=== PATIENT | female | born 1975 | race Caucasian/White ===

== ENCOUNTER 2017-06-19 17:45 | Inpatient (IN) | payer BC ==
[2017-06-19] VITALS (8 sets, daily range): BP systolic 104–123; BP diastolic 68–84; PULSE 98–114; RESP 16–18; TEMP 99.2; O2SAT 93–100
[~2017-06-19] VITALS: Ht 162.6 cm; Wt 86.3 kg
[2017-06-19] MEDS ORDERED: PRIS50TA PO (18:18)
[2017-06-19] MEDS ORDERED: BACT400T PO (18:18)
--- NOTE | 2017-06-19 18:30 | RADRPT ---
EXAM DATE/TIME: 06/19/2017 18:19 [facility] COMPARISON: No previous studies available for comparison. INDICATIONS : Shortness of breath, cough for 3 days MEDICAL HISTORY : None. SURGICAL HISTORY : None. ENCOUNTER: Initial ACUITY: 3 days PAIN SCORE: 0/10 LOCATION: Bilateral chest FINDINGS: PA and lateral views of the chest demonstrate the lungs to be symmetrically aerated without evidence of mass, infiltrate or effusion. Slight elevation right hemidiaphragm. The cardiomediastinal contours are unremarkable. Osseous structures are intact. CONCLUSION: Slight elevation right hemidiaphragm. No acute disease. Manuel Sanchez MD on June 19, 2017 at 18:28 Board Certified Radiologist. This report was verified electronically.
[2017-06-19 19:22] LABS: AUTOMATED NEUTROPHIL # 7.9 TH/MM3 (1.8-7.7); BASOPHIL # 0.4 TH/MM3 (0-0.2); BASOPHIL % 3.3 % (0.0-2.0); EOSINOPHIL # 0.2 TH/MM3 (0-0.4); EOSINOPHIL % 2.1 % (0.0-4.0); HEMATOCRIT 42.7 % (35.0-46.0); LYMPH % 14.8 % (9.0-44.0); LYMPHOCYTE # 1.7 TH/MM3 (1.0-4.8); MEAN CORPUSCULAR HEMOGLOBIN 28.8 PG (27.0-34.0); MEAN CORPUSCULAR HGB CONC 33.5 % (32.0-36.0); MONO % 9.2 % (0.0-8.0); NEUT % 70.6 % (16.0-70.0); PLATELET COUNT 302 TH/MM3 (150-450); RED BLOOD COUNT 4.97 MIL/MM3 (4.00-5.30); RED CELL DISTRIBUTION WIDTH 12.4 % (11.6-17.2); WHITE BLOOD COUNT 11.3 TH/MM3 (4.0-11.0)
[2017-06-19 19:30] LABS: CHLORIDE 101 MEQ/L (98-107); POTASSIUM 3.5 MEQ/L (3.5-5.1); SODIUM (NA) 136 MEQ/L (136-145)
[2017-06-19 19:33] LABS: HEMO FLAGS DIFF FINAL
[2017-06-19 19:34] LABS: ANION GAP 9 MEQ/L (5-15); BICARBONATE 26.1 MEQ/L (21.0-32.0); BLOOD UREA NITROGEN 7 MG/DL (7-18)
[2017-06-19 19:37] LABS: ALT (GPT) 537 U/L (10-53); AST (GOT) 225 U/L (15-37); GLOMERULAR FILTRATION RATE 64 ML/MIN (>89)
[2017-06-19 19:39] LABS: TOTAL BILIRUBIN ADULT 1.1 MG/DL (0.2-1.0)
[2017-06-19 19:40] LABS: ALKALINE PHOSPHATASE 411 U/L (45-117); APTT (PATIENT) 30.1 SEC (24.3-30.1); INTERNATIONAL NORMALIZED RATIO 0.9 RATIO; PROTHROMBIN TIME - PATIENT 10.4 SEC (9.8-11.6)
[2017-06-19 19:41] LABS: CREATINE KINASE 84 U/L (26-192)
[2017-06-19] MEDS ORDERED: methylPREDNISolone SOD SUCC 125 MG/2 ML VIAL IVP ONE (19:45)
[2017-06-19] MEDS ORDERED: KETOROLAC TROMETHAMINE 30 MG/ML (IVP) VIAL IV PUSH ONE (19:45)
[2017-06-19] MEDS: RESP: ALBUTEROL 2.5 MG/IPRATROPIUM 0.5 MG NEB (SCH) INH ×2 (20:00→20:02)
[2017-06-19 20:40] LABS: BLOOD, URINE TRACE (NEG); GLUCOSE,URINE NEG (NEG); KETONE, URINE NEG (NEG); NITRITE,URINE NEG (NEG); PH, URINE 5.5 (5.0-8.5)
[2017-06-19 20:46] LABS: URINE COLOR YELLOW (YELLW/STRAW); WBC, URINE 0-2 /hpf (0-5)
[2017-06-19 20:47] LABS: BACTERIA, URINE FEW /hpf; COMMENT (UR) CULT NOT INDICATED; CULTURE IF INDICATED CULT NOT INDICATED; RBC, URINE 0-3 /hpf (0-3); SQUAMOUS EPITHELIAL CELL URINE 0-5 /hpf (0-5)
[2017-06-19] MEDS ORDERED: IOHEXOL 350 MG/ML 10 ML VIAL (for RAD DIAG) IV ONE (21:04)
--- NOTE | 2017-06-19 21:18 | RADRPT ---
EXAM DATE/TIME: 06/19/2017 20:36 [facility] COMPARISON: No previous studies available for comparison. INDICATIONS : Shortness of breath with chest pain. Elevated d-dimer. IV CONTRAST: 100 cc Omnipaque 350 (iohexol) IV ; Cumulative dose for multiple exams. RADIATION DOSE: 22.39 CTDIvol (mGy) MEDICAL HISTORY : None SURGICAL HISTORY : Hysterectomy. ENCOUNTER: Initial ACUITY: 1 day PAIN SCALE: 9/10 LOCATION: Bilateral chest TECHNIQUE: Volumetric scanning of the chest was performed using a pulmonary embolism protocol MIP images were re constructed. Using automated exposure control and adjustment of the mA and/or kV according to patien t size, radiation dose was kept as low as reasonably achievable to obtain optimal diagnostic quality images. DICOM format image data is available electronically for review and comparison. Follow-up recommendations for incidentally detected pulmonary nodules are based at a minimum on nodul e size and patient risk factors according to Fleischner Society Guidelines. FINDINGS: PULMONARY ARTERIES: No filling defects are seen in the pulmonary arteries through the segmental level. LUNGS: There is no consolidation or pneumothorax . No concerning pulmonary nodule is visualized. Bibasilar patchy densities. PLEURAE: There is no pleural thickening or pleural effusion. MEDIASTINUM: There is good visualization of the great vessels of the middle mediastinum. No evidence of mediastin al or hilar adenopathy/mass. MUSCULOSKELETAL: Within normal limits for patient age. MISCELLANEOUS: The visualized upper abdominal organs demonstrate no acute abnormality. CONCLUSION: 1. No evidence for pulmonary embolism. 2. Bibasilar patchy densities. Manuel Sanchez MD on June 19, 2017 at 21:15 Board Certified Radiologist. This report was verified electronically.
--- NOTE | 2017-06-19 21:20 | RADRPT ---
EXAM DATE/TIME: 06/19/2017 20:36 [facility] COMPARISON: No previous studies available for comparison. INDICATIONS : Elevated liver laboratory results. IV CONTRAST: 100 cc Omnipaque 350 (iohexol) IV ; Cumulative dose for multiple exams. ORAL CONTRAST: No oral contrast ingested. RADIATION DOSE: 20.22 CTDIvol (mGy) MEDICAL HISTORY : None SURGICAL HISTORY : Hysterectomy. ENCOUNTER: Initial ACUITY: 1 day PAIN SCALE: 0/10 LOCATION: abdomen TECHNIQUE: Volumetric scanning of the abdomen and pelvis was performed. Using automated exposure control and ad justment of the mA and/or kV according to patient size, radiation dose was kept as low as reasonably achievable to obtain optimal diagnostic quality images. DICOM format image data is available electro nically for review and comparison. FINDINGS: LOWER LUNGS: The visualized lower lungs are clear. LIVER: Homogeneous density without lesion. There is no dilation of the biliary tree. No calcified gallston es. SPLEEN: Normal size without lesion. PANCREAS: Within normal limits. KIDNEYS: Normal in size and shape. There is no mass, stone or hydronephrosis. Left renal low-density. ADRENAL GLANDS: Within normal limits. VASCULAR: There is no aortic aneurysm. BOWEL/MESENTERY: The stomach, small bowel, and colon demonstrate no acute abnormality. There is no free intraperitone al air or fluid. ABDOMINAL WALL: Within normal limits. RETROPERITONEUM: There is no lymphadenopathy. BLADDER: No wall thickening or mass. REPRODUCTIVE: Status post hysterectomy. INGUINAL: There is no lymphadenopathy or hernia. MUSCULOSKELETAL: Within normal limits for patient age. CONCLUSION: 1. No acute inflammatory process. 2. Liver is unremarkable. 3. Left renal low-density likely cysts. Manuel Sanchez MD on June 19, 2017 at 21:17 Board Certified Radiologist. This report was verified electronically.
[2017-06-19] MEDS ORDERED: LEVOFLOXACIN 750 MG PREMIX INJ 150 ML IV ONE (22:00)
[2017-06-19] MEDS ORDERED: cefTRIAXone INJ 1,000 MG in SODIUM CHLORIDE 0.9% INJ 100 ML IV ONE (22:00)
--- NOTE | 2017-06-19 22:23 | PD ---
HPI Chief Complaint: Chest Pain Time Seen by Provider: 18:07 Travel History International Travel<30 days: No Contact w/Intl Traveler<30days: No Traveled to known affect area: No History of Present Illness HPI Patient is a 42-year-old female who comes in complaining of chest pain with shortness of breath and back pain. She says it started about 3 days ago with cough and then she started to feel tightness in her chest and pain to her back. She says her mom had a heart attack in her 20s, and this made her nervous. She says she has been having sweats, but no documented fever that she knows of. She denies nausea or vomiting. She does say she is coughing up green phlegm. She denies recent travel, leg pain or swelling. 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) Tetanus Vaccination: < 5 Years Influenza Vaccination: Yes ?: Not Past Surgical History Hysterectomy: Yes Social History Alcohol Use: No Tobacco Use: No Substance Use: No Allergies-Medications (Allergen,Severity, Reaction): Coded Allergies: Erythromycin (Verified Allergy, Severe, Nausea/Vomiting, 06/19/17) Reported Meds & Prescriptions Reported Meds & Active Scripts Active Reported Bactrim (Sulfamethoxazole-Trimethoprim) 400-80 Mg Tab 1 Tab PO BID Pristiq 24 HR (Desvenlafaxine ER 24 HR) 50 Mg Tab 50 Mg PO DAILY Review of Systems Except as stated in HPI: all other systems reviewed are Neg Eyes: No: Blurred Vision HENT: No: Headaches, Lightheadedness Cardiovascular: Positive: Chest Pain or Discomfort Respiratory: Positive: Cough, Shortness of Breath Gastrointestinal: No: Nausea, Vomiting Genitourinary: No: Dysuria Musculoskeletal: No: Myalgias, Edema Skin: No Rash, No Change in Pigmentation Neurologic: No: Weakness, Dizziness Physical Exam Narrative GENERAL: Awake and alert, in no acute distress. SKIN: Focused skin assessment warm/dry. HEAD: Atraumatic. Normocephalic. EYES: Pupils equal and round. No scleral icterus. ENT: Mucous membranes pink and moist. NECK: Trachea midline. No JVD. CARDIOVASCULAR: Regular rate and rhythm. No murmur appreciated. RESPIRATORY: No accessory muscle use. Expirational wheezes. Breath sounds equal bilaterally. GASTROINTESTINAL: Abdomen soft, non-tender, nondistended. MUSCULOSKELETAL: No obvious deformities. No clubbing. No cyanosis. No edema. NEUROLOGICAL: Awake and alert. No obvious cranial nerve deficits. Motor grossly within normal limits. Normal speech. PSYCHIATRIC: Appropriate mood and affect; insight and judgment normal. Data Data Last Documented VS Vital Signs Date Time Temp Pulse Resp B/P Pulse Ox O2 Delivery O2 Flow Rate FiO2 06/19/17 21:15 16 06/19/17 21:00 110 106/68 93 Room Air 06/19/17 18:19 99.2 Orders Ckmb (Isoenzyme) Profile (06/19/17 18:07) Complete Blood Count With Diff (06/19/17 18:07) Comprehensive Metabolic Panel (06/19/17 18:07) D-Dimer (06/19/17 18:07) Prothrombin Time / Inr (Pt) (06/19/17 18:07) Act Partial Throm Time (Ptt) (06/19/17 18:07) Troponin I (06/19/17 18:07) Ecg Monitoring (06/19/17 18:07) Bilateral Bp Monitoring (06/19/17 18:07) Iv Access Insert/Monitor (06/19/17 18:07) Oximetry (06/19/17 18:07) Chest, Pa & Lat (06/19/17 18:07) Methylprednisolone So Succ Inj (Solumedr (06/19/17 19:45) Albuterol-Ipratropium Neb (Duoneb Neb) (06/19/17 19:45) Ketorolac Inj (Toradol Inj) (06/19/17 19:45) Ct Pulmonary Angiogram (06/19/17 20:05) Ct Abd/Pel W Iv Contrast(Rout) (06/19/17 ) Urinalysis - C+S If Indicated (06/19/17 20:22) Iohexol 350 Inj (Omnipaque 350 Inj) (06/19/17 21:04) Electrocardiogram (06/19/17 17:53) Ceftriaxone Inj (Rocephin Inj) (06/19/17 22:00) Levofloxacin 750 Mg Premix Inj (Levaquin (06/19/17 22:00) Admit Order (Ed Use Only) (06/19/17 ) Labs Laboratory Tests Test 06/19/17 06/19/17 19:15 20:10 White Blood Count 11.3 TH/MM3 Red Blood Count 4.97 MIL/MM3 Hemoglobin 14.3 GM/DL Hematocrit 42.7 % Mean Corpuscular Volume 86.0 FL Mean Corpuscular Hemoglobin 28.8 PG Mean Corpuscular Hemoglobin 33.5 % Concent Red Cell Distribution Width 12.4 % Platelet Count 302 TH/MM3 Mean Platelet Volume 7.9 FL Neutrophils (%) (Auto) 70.6 % Lymphocytes (%) (Auto) 14.8 % Monocytes (%) (Auto) 9.2 % Eosinophils (%) (Auto) 2.1 % Basophils (%) (Auto) 3.3 % Neutrophils # (Auto) 7.9 TH/MM3 Lymphocytes # (Auto) 1.7 TH/MM3 Monocytes # (Auto) 1.0 TH/MM3 Eosinophils # (Auto) 0.2 TH/MM3 Basophils # (Auto) 0.4 TH/MM3 CBC Comment DIFF FINAL Differential Comment Prothrombin Time 10.4 SEC Prothromb Time International 0.9 RATIO Ratio Activated Partial 30.1 SEC Thromboplast Time D-Dimer Quantitative (PE/DVT) 1.81 MG/L FEU Sodium Level 136 MEQ/L Potassium Level 3.5 MEQ/L Chloride Level 101 MEQ/L Carbon Dioxide Level 26.1 MEQ/L Anion Gap 9 MEQ/L Blood Urea Nitrogen 7 MG/DL Creatinine 0.97 MG/DL Estimat Glomerular Filtration 64 ML/MIN Rate Random Glucose 117 MG/DL Calcium Level 9.2 MG/DL Total Bilirubin 1.1 MG/DL Aspartate Amino Transf 225 U/L (AST/SGOT) Alanine Aminotransferase 537 U/L (ALT/SGPT) Alkaline Phosphatase 411 U/L Total Creatine Kinase 84 U/L Troponin I LESS THAN 0.02 NG/ML Total Protein 8.1 GM/DL Albumin 3.5 GM/DL Urine Color YELLOW Urine Turbidity CLEAR Urine pH 5.5 Urine Specific [place] 1.006 Urine Protein NEG mg/dL Urine Glucose (UA) NEG mg/dL Urine Ketones NEG mg/dL Urine Occult Blood TRACE Urine Nitrite NEG Urine Bilirubin NEG Urine Leukocyte Esterase NEG Urine RBC 0-3 /hpf Urine WBC 0-2 /hpf Urine Squamous Epithelial 0-5 /hpf Cells Urine Bacteria FEW /hpf Microscopic Urinalysis Comment CULT NOT INDICATED MDM Medical Decision Making Medical Screen Exam Complete: Yes Emergency Medical Condition: Yes Interpretation(s) ECG shows sinus tachycardia Differential Diagnosis pneumonia vs PE vs bronchitis Narrative Course Patient is a 42-year-old female comes in complaining of chest pain or shortness of breath. Exam shows wheezes on expiration. IV established, labs sent. Patient given 3 duo nebs as well as a dose of Solu-Medrol. Labs show no elevated d-dimer. CTA of the chest performed shows no evidence of PE, but there are bibasilar patchy opacities. Patient's oxygen saturation is 93% on room air. She is placed on nasal cannula. Given Rocephin and azithromycin. She'll be admitted for further management. Diagnosis Primary Impression: Pneumonia Qualified Code: J18.9 - Pneumonia of both lower lobes due to infectious organism Additional Impression: Hypoxia Admitting Information Admitting Physician Requests: Admit Condition: Stable Denise Avila MD Jun 19, 2017 22:23
[2017-06-19] MEDS ORDERED: SODIUM CHLORIDE 0.9% FLUSH 10 ML FLUSH IV FLUSH PRN (22:30)
[2017-06-19] MEDS ORDERED: NALOXONE HCL 0.4 MG/ML AMP IV PRN (22:30)
[2017-06-20] VITALS (13 sets, daily range): BP systolic 101–141; BP diastolic 61–94; PULSE 73–102; RESP 16–18; TEMP 97.5–98.8; O2SAT 93–99
[2017-06-20] MEDS ORDERED: LORA-392 PO (01:25)
[2017-06-20] MEDS ORDERED: LORazepam 0.5 MG TAB PO ONE (01:45)
[2017-06-20 06:27] LABS: AUTOMATED NEUTROPHIL # 6.6 TH/MM3 (1.8-7.7); BASOPHIL # 0.1 TH/MM3 (0-0.2); BASOPHIL % 1.9 % (0.0-2.0); EOSINOPHIL # 0.1 TH/MM3 (0-0.4); EOSINOPHIL % 0.7 % (0.0-4.0); HEMATOCRIT 41.2 % (35.0-46.0); HEMO FLAGS DIFF FINAL; LYMPH % 7.5 % (9.0-44.0); LYMPHOCYTE # 0.6 TH/MM3 (1.0-4.8); MEAN CELL VOLUME 85.4 FL (80.0-100.0); MEAN CORPUSCULAR HEMOGLOBIN 28.8 PG (27.0-34.0); MEAN CORPUSCULAR HGB CONC 33.8 % (32.0-36.0); MONO % 0.9 % (0.0-8.0); PLATELET COUNT 264 TH/MM3 (150-450); RED BLOOD COUNT 4.83 MIL/MM3 (4.00-5.30); RED CELL DISTRIBUTION WIDTH 12.3 % (11.6-17.2); WHITE BLOOD COUNT 7.5 TH/MM3 (4.0-11.0)
[2017-06-20 07:05] LABS: CHLORIDE 103 MEQ/L (98-107); POTASSIUM 3.9 MEQ/L (3.5-5.1); SODIUM (NA) 137 MEQ/L (136-145)
[2017-06-20 07:08] LABS: ANION GAP 11 MEQ/L (5-15); BLOOD UREA NITROGEN 7 MG/DL (7-18)
[2017-06-20 07:11] LABS: ALT (GPT) 423 U/L (10-53); AST (GOT) 118 U/L (15-37); GLOMERULAR FILTRATION RATE 77 ML/MIN (>89)
[2017-06-20 07:13] LABS: TOTAL BILIRUBIN ADULT 0.5 MG/DL (0.2-1.0)
[2017-06-20 07:14] LABS: ALKALINE PHOSPHATASE 361 U/L (45-117)
[2017-06-20] MEDS: SODIUM CHLORIDE 0.9% FLUSH 10 ML FLUSH IV FLUSH SCH ×2 (09:01→21:35)
[2017-06-20] MEDS ORDERED: KETOROLAC TROMETHAMINE 60 MG/2 ML (IM) VIAL IM PRN (10:30)
[2017-06-20] MEDS ORDERED: KETOROLAC TROMETHAMINE 30 MG/ML (IVP) VIAL IV PUSH PRN (11:00)
--- NOTE | 2017-06-20 12:54 | EKG ---
Date Performed: 06/19/2017 Time Performed: 17:53:09 PTAGE: 42 years EKG: SINUS TACHYCARDIA LOW QRS VOLTAGE IN PRECORDIAL LEADS ABNORMAL RHYTHM ECG INTERPRETATION BA SED ON A DEFAULT AGE OF 42 YEARS NO PREVIOUS TRACING DOCTOR: George Saeed Interpretating Date/Time 06/20/2017 12:50:20
[2017-06-20] MEDS ORDERED: LORazepam 0.5 MG TAB PO PRN (13:30)
[2017-06-20] MEDS ORDERED: PT OWN: PRISTIQ 50MG PO SCH (13:30)
[2017-06-20] MEDS ORDERED: ACETAMINOPHEN 500 MG CPLT PO PRN (13:30)
[2017-06-20] MEDS ORDERED: BENZONATATE 100 MG CAP PO PRN (13:30)
--- NOTE | 2017-06-20 13:41 | HHI.HP ---
HPI Service [facility] Primary Care Physician No Primary Care Physician Admission Diagnosis Pneumonia, hypoxia Diagnoses: Chief Complaint: SOB and JEAN with cough Travel History International Travel<30 Days: No Contact w/Intl Traveler <30 Da: No Traveled to Known Affected Are: No History of Present Illness Patient is a 42-year-old female with a history of anxiety who had 4 days of increasing dyspnea on exertion, shortness of breath and nonproductive cough. Over the last 24 hours discomfort and cough got worse and she came to the emergency room. She felt tightness in her chest and said the pain which was moderate radiated to her back and was worse with cough. Chest x-ray was unremarkable however CT of the chest did show no pulmonary embolism but bilateral patchy infiltrates consistent with probable pneumonia. Patient's been started on antibiotics for community-acquired pneumonia. She has a childhood history of asthma and has had a problems with this but has been on increased psychosocial stressors due to recent move from the [facility] to [facility]. She has leukocytosis, tachycardia and elevated LFTs. Patient was also hypoxemic. She has been admitted to the hospital for pneumonia with evidence of sepsis. Review of Systems Constitutional: COMPLAINS OF: Fatigue, DENIES: Diaphoretic episodes, Fever, Weight gain, Weight loss, Chills, Dizziness, Change in appetite, Night Sweats Endocrine: DENIES: Abnorml menstrual pattern, Heat/cold intolerance, Polydipsia , Polyuria, Polyphagia Eyes: DENIES: Blurred vision, Diplopia, Eye inflammation, Eye pain, Vision loss , Photosensitivity, Double Vision Ears, nose, mouth, throat: DENIES: Tinnitus, Hearing loss, Vertigo, Nasal discharge, Oral lesions, Throat pain, Hoarseness, Ear Pain, Running Nose, Epistaxis, Sinus Pain, Toothache, Odynophagia Respiratory: COMPLAINS OF: Cough, Shortness of breath, DENIES: Apneas, Snoring , Wheezing, Hemoptysis, Sputum production Cardiovascular: DENIES: Chest pain, Palpitations, Syncope, Dyspnea on Exertion , PND, Lower Extremity Edema, Orthopnea, Claudication Gastrointestinal: DENIES: Abdominal pain, Black stools, Bloody stools, Constipation, Diarrhea, Nausea, Vomiting, Difficulty Swallowing, Anorexia Genitourinary: DENIES: Abnormal vaginal bleeding, Dysmenorrhea, Dyspareunia, Sexual dysfunction, Urinary frequency, Urinary incontinence, Urgency, Hematuria , Dysuria, Nocturia, Vaginal discharge Musculoskeletal: DENIES: Joint pain, Muscle aches, Stiffness, Joint Swelling, Back pain, Neck pain Integumentary: DENIES: Abnormal pigmentation, Pruritus, Rash, Nail changes, Breast masses, Breast skin changes, Nipple discharge Hematologic/lymphatic: DENIES: Bruising, Lymphadenopathy Immunologic/allergic: DENIES: Eczema, Urticaria Neurologic: DENIES: Abnormal gait, Headache, Localized weakness, Paresthesias, Seizures, Speech Problems, Tremor, Poor Balance Psychiatric: DENIES: Anxiety, Confusion, Mood changes, Depression, Hallucinations, Agitation, Suicidal Ideation, Homicidal Ideation, Delusions Past Family Social History Past Medical History childhood asthma Past Surgical History hysterectomy Reported Medications reviewed in the EMR, recent Bactrim due to UTI Allergies: Coded Allergies: Erythromycin (Verified Allergy, Severe, Nausea/Vomiting, 06/19/17) Gluten Flour (Verified Allergy, Severe, 06/20/17) Active Ordered Medications Reviewed in the EMR Family History Mom had CAD, CABG Father had Hyperlipidemia Social History Lives with Fiance, No tobacco or etoh Physical Exam Vital Signs Vital Signs Date Time Temp Pulse Resp B/P Pulse Ox O2 Delivery O2 Flow Rate FiO2 06/20/17 12:00 97.5 93 18 122/94 98 06/20/17 08:00 97.7 78 17 109/71 96 06/20/17 07:06 98.0 90 16 102/67 93 Nasal Cannula 2 06/20/17 06:48 98 Nasal Cannula 2 06/20/17 05:00 99 Nasal Cannula 2 06/20/17 05:00 88 18 106/61 97 Room Air 06/20/17 03:05 93 16 103/71 95 Nasal Cannula 2 06/20/17 03:00 99 Nasal Cannula 2 06/20/17 01:05 92 16 101/72 95 Nasal Cannula 2 06/20/17 01:00 98 16 95 Nasal Cannula 2 06/20/17 00:05 98.8 102 16 114/75 97 Nasal Cannula 2 06/19/17 23:05 98 16 106/69 95 Nasal Cannula 2 06/19/17 22:10 100 18 95 Nasal Cannula 2 06/19/17 22:05 100 16 109/74 95 Nasal Cannula 2 06/19/17 21:15 16 06/19/17 21:00 110 16 106/68 93 Room Air 06/19/17 20:40 114 16 123/84 96 Room Air 06/19/17 19:40 114 18 104/76 95 Room Air 06/19/17 19:30 109 18 92 06/19/17 19:00 102 18 114/84 93 Room Air 06/19/17 19:00 106 18 112/76 93 Room Air 114/84 06/19/17 18:43 100 06/19/17 18:19 99.2 110 18 119/83 100 Physical Exam GENERAL: This is a well-nourished, well-developed patient, coughing SKIN: No rashes, ecchymoses or lesions. Cool and dry. HEAD: Atraumatic. Normocephalic. No temporal or scalp tenderness. EYES: Pupils equal round and reactive. Extraocular motions intact. No scleral icterus. No injection or drainage. ENT: Nose without bleeding, purulent drainage or septal hematoma. Throat without erythema, tonsillar hypertrophy or exudate. Uvula midline. Airway patent. NECK: Trachea midline. No JVD or lymphadenopathy. Supple, nontender, no meningeal signs. CARDIOVASCULAR: Regular rate and rhythm without murmurs, gallops, or rubs. RESPIRATORY: Clear to auscultation. Breath sounds equal bilaterally. No wheezes , rales, or rhonchi. GASTROINTESTINAL: Abdomen soft, non-tender, nondistended. No hepato-splenomegaly , or palpable masses. No guarding. MUSCULOSKELETAL: Extremities without clubbing, cyanosis, or edema. No joint tenderness, effusion, or edema noted. No calf tenderness. Negative Homans sign bilaterally. NEUROLOGICAL: Awake and alert. Cranial nerves II through XII intact. Motor and sensory grossly within normal limits. Five out of 5 muscle strength in all muscle groups. Normal speech. Laboratory Laboratory Tests Test 06/19/17 06/19/17 06/20/17 06/20/17 19:15 20:10 06:10 06:48 White Blood Count 11.3 7.5 Red Blood Count 4.97 4.83 Hemoglobin 14.3 13.9 Hematocrit 42.7 41.2 Mean Corpuscular Volume 86.0 85.4 Mean Corpuscular Hemoglobin 28.8 28.8 Mean Corpuscular Hemoglobin 33.5 33.8 Concent Red Cell Distribution Width 12.4 12.3 Platelet Count 302 264 Mean Platelet Volume 7.9 7.8 Neutrophils (%) (Auto) 70.6 89.0 Lymphocytes (%) (Auto) 14.8 7.5 Monocytes (%) (Auto) 9.2 0.9 Eosinophils (%) (Auto) 2.1 0.7 Basophils (%) (Auto) 3.3 1.9 Neutrophils # (Auto) 7.9 6.6 Lymphocytes # (Auto) 1.7 0.6 Monocytes # (Auto) 1.0 0.1 Eosinophils # (Auto) 0.2 0.1 Basophils # (Auto) 0.4 0.1 CBC Comment DIFF FINAL DIFF FINAL Differential Comment Prothrombin Time 10.4 Prothromb Time International 0.9 Ratio Activated Partial 30.1 Thromboplast Time D-Dimer Quantitative (PE/DVT) 1.81 Sodium Level 136 137 Potassium Level 3.5 3.9 Chloride Level 101 103 Carbon Dioxide Level 26.1 23.0 Anion Gap 9 11 Blood Urea Nitrogen 7 7 Creatinine 0.97 0.82 Estimat Glomerular Filtration 64 77 Rate Random Glucose 117 162 Calcium Level 9.2 8.9 Total Bilirubin 1.1 0.5 Aspartate Amino Transf 225 118 (AST/SGOT) Alanine Aminotransferase 537 423 (ALT/SGPT) Alkaline Phosphatase 411 361 Total Creatine Kinase 84 Troponin I LESS THAN 0.02 Total Protein 8.1 7.6 Albumin 3.5 3.1 Urine Color YELLOW Urine Turbidity CLEAR Urine pH 5.5 Urine Specific [place] 1.006 Urine Protein NEG Urine Glucose (UA) NEG Urine Ketones NEG Urine Occult Blood TRACE Urine Nitrite NEG Urine Bilirubin NEG Urine Leukocyte Esterase NEG Urine RBC 0-3 Urine WBC 0-2 Urine Squamous Epithelial 0-5 Cells Urine Bacteria FEW Microscopic Urinalysis Comment CULT NOT INDICATED Result Diagram: 06/20/1710 06/20/[address] Angiography 06/19/172004 Signed Impressions: Service Date/Time: Monday, June 19, 2017 20:36 - CONCLUSION: 1. No evidence for pulmonary embolism. 2. Bibasilar patchy densities. Manuel Sanchez MD Chest X-Ray 06/19/171806 Signed Impressions: Service Date/Time: Monday, June 19, 2017 18:19 - CONCLUSION: Slight elevation right hemidiaphragm. No acute disease. Manuel Sanchez MD Abdomen/Pelvis CT 06/19/17 0000 Signed Impressions: Service Date/Time: Monday, June 19, 2017 20:36 - CONCLUSION: 1. No acute inflammatory process. 2. Liver is unremarkable. 3. Left renal low-density likely cysts. Manuel Sanchez MD Septic Shock Reassessment Heart: Regular rate and rhythm Lungs: Clear Skin: Warm Peripheral Pulses: Bounding Right Radial Bounding Left Radial Bounding Right Popliteal Bounding Left Popliteal Bounding Right Dorsalis Pedis Bounding Left Dorsalis Pedis Bounding Right Posterior Tibial Bounding Left Posterior Tibial Assessment and Plan Problem List: (1) Pneumonia ICD Code: J18.9 Status: Acute Plan: Continue IV Levaquin, bronchodilators, follow for further hypoxemia. Patient with a history of asthma as a child, Continue with bronchodilators and IV steroids (2) Hypoxia ICD Code: R09.02 Status: Acute Plan: Patient's hypoxemia has improved. Continue with medical management and bronchodilators (3) Sepsis ICD Code: A41.9 Status: Acute Plan: Patient with leukocytosis, tachycardia and pneumonia. We'll continue with IV Levaquin for now, overall appears to be improving Physician Certification 2 Midnight Certification Type: Admission for Inpatient Services Order for Inpatient Services The services are ordered in accordance with Medicare regulations or non- Medicare payer requirements, as applicable. In the case of services not specified as inpatient-only, they are appropriately provided as inpatient services in accordance with the 2-midnight benchmark. Estimated LOS (days): 3 3 days is the estimated time the patient will need to remain in the hospital, assuming treatment plan goals are met and no additional complications. Post-Hospital Plan: Home Problem Qualifiers (1) Pneumonia: Qualified Code: J18.9 - Pneumonia of both lower lobes due to infectious organism Sun Borden MD Jun 20, 2017 13:41
[2017-06-20] MEDS: methylPREDNISolone SOD SUCC 125 MG/2 ML VIAL IV PUSH SCH (14:19)
[2017-06-20] MEDS: ACETAMINOPHEN/HYDROcodone 325 MG/7.5 MG TAB PO PRN ×2 (15:05→20:03)
[2017-06-20] MEDS: RESP: ALBUTEROL 2.5 MG/IPRATROPIUM 0.5 MG NEB (SCH) NEB ×2 (15:09→19:55)
[2017-06-20] MEDS ORDERED: LEVOFLOXACIN 750 MG PREMIX INJ 150 ML IV SCH (22:00)
[2017-06-21] VITALS: BP 107/76; PULSE 99; RESP 17; TEMP 96.1; O2SAT 93
[2017-06-21] MEDS: methylPREDNISolone SOD SUCC 125 MG/2 ML VIAL IV PUSH SCH (02:38)
[2017-06-21 06:05] LABS: AUTOMATED NEUTROPHIL # 17.3 TH/MM3 (1.8-7.7); BASOPHIL % 0.1 % (0.0-2.0); EOSINOPHIL % 0.1 % (0.0-4.0); HEMATOCRIT 41.9 % (35.0-46.0); HEMO FLAGS DIFF FINAL; LYMPH % 5.4 % (9.0-44.0); MEAN CELL VOLUME 85.9 FL (80.0-100.0); MEAN CORPUSCULAR HEMOGLOBIN 28.5 PG (27.0-34.0); MEAN CORPUSCULAR HGB CONC 33.2 % (32.0-36.0); NEUT % 92.4 % (16.0-70.0); PLATELET COUNT 326 TH/MM3 (150-450); RED BLOOD COUNT 4.87 MIL/MM3 (4.00-5.30); RED CELL DISTRIBUTION WIDTH 12.4 % (11.6-17.2); WHITE BLOOD COUNT 18.7 TH/MM3 (4.0-11.0)
[2017-06-21 06:10] LABS: CHLORIDE 104 MEQ/L (98-107); POTASSIUM 4.3 MEQ/L (3.5-5.1); SODIUM (NA) 140 MEQ/L (136-145)
[2017-06-21 06:18] LABS: ANION GAP 6 MEQ/L (5-15); BICARBONATE 29.9 MEQ/L (21.0-32.0)
[2017-06-21 06:19] LABS: BLOOD UREA NITROGEN 12 MG/DL (7-18)
[2017-06-21 06:22] LABS: ALT (GPT) 405 U/L (10-53); AST (GOT) 111 U/L (15-37); GLOMERULAR FILTRATION RATE 74 ML/MIN (>89)
[2017-06-21 06:23] LABS: TOTAL BILIRUBIN ADULT 0.3 MG/DL (0.2-1.0)
[2017-06-21 06:24] LABS: ALKALINE PHOSPHATASE 385 U/L (45-117)
[2017-06-21] MEDS: RESP: ALBUTEROL 2.5 MG/IPRATROPIUM 0.5 MG NEB (SCH) NEB (07:37)
[2017-06-21 07:40] VITALS: O2SAT 94
[2017-06-21 08:00] VITALS: BP 116/86; PULSE 98; RESP 18; TEMP 96.9; O2SAT 93
[2017-06-21] MEDS: ACETAMINOPHEN/HYDROcodone 325 MG/7.5 MG TAB PO PRN (08:24)
[2017-06-21] MEDS: SODIUM CHLORIDE 0.9% FLUSH 10 ML FLUSH IV FLUSH SCH (08:24)
[2017-06-21] MEDS ORDERED: DIFL150T PO (09:32)
[2017-06-21] MEDS ORDERED: LEVO500T8 PO (09:32)
[2017-06-21] MEDS ORDERED: PRED20 PO (09:32)
[2017-06-21] MEDS ORDERED: BENZ100 PO (09:32)
[2017-06-21] MEDS ORDERED: ALBU6.7H INH (09:32)
--- NOTE | 2017-06-21 09:33 | HHI.DCPOC ---
Discharge Care Plan Diagnosis: (1) Pneumonia Goals to Promote Your Health * To prevent worsening of your condition and complications * To maintain your health at the optimal level Directions to Meet Your Goals Take your medications as prescribed Follow your dietary instruction Follow activity as directed Keep your appointments as scheduled Take your immunizations and boosters as scheduled If your symptoms worsen call your PCP, if no PCP go to Urgent Care Center or Emergency Room Smoking is Dangerous to Your Health. Avoid second hand smoke Call the 24-hour hour crisis hotline for domestic abuse at Sun Borden MD Jun 21, 2017 09:32
--- NOTE | 2017-06-21 09:35 | HHI.DS ---
Discharge Summary Admission Date Jun 19, 2017 at 22:21 Discharge Date: Jun 21, 2017 Admitting Diagnosis Pneumonia, hypoxia (1) Pneumonia ICD Code: J18.9 (2) Hypoxia ICD Code: R09.02 (3) Sepsis ICD Code: A41.9 Procedures none Brief History - From Admission Patient is a 42-year-old female with a history of anxiety who had 4 days of increasing dyspnea on exertion, shortness of breath and nonproductive cough. Over the last 24 hours discomfort and cough got worse and she came to the emergency room. She felt tightness in her chest and said the pain which was moderate radiated to her back and was worse with cough. Chest x-ray was unremarkable however CT of the chest did show no pulmonary embolism but bilateral patchy infiltrates consistent with probable pneumonia. Patient's been started on antibiotics for community-acquired pneumonia. She has a childhood history of asthma and has had a problems with this but has been on increased psychosocial stressors due to recent move from the [facility] to [facility]. She has leukocytosis, tachycardia and elevated LFTs. Patient was also hypoxemic. She has been admitted to the hospital for pneumonia with evidence of sepsis. CBC/BMP: 06/21/17 0523 06/21/17 0523 Significant Findings Laboratory Tests Test 06/19/17 06/19/17 06/20/17 06/20/17 19:15 20:10 06:10 06:48 White Blood Count 11.3 TH/MM3 (4.0-11.0) Neutrophils (%) (Auto) 70.6 % 89.0 % (16.0-70.0) (16.0-70.0) Monocytes (%) (Auto) 9.2 % (0.0-8.0) Basophils (%) (Auto) 3.3 % (0.0-2.0) Neutrophils # (Auto) 7.9 TH/MM3 (1.8-7.7) Monocytes # (Auto) 1.0 TH/MM3 (0-0.9) Basophils # (Auto) 0.4 TH/MM3 (0-0.2) D-Dimer Quantitative (PE/DVT) 1.81 MG/L FEU (0.00-0.50) Estimat Glomerular Filtration 64 ML/MIN (>89) 77 ML/MIN (>89) Rate Random Glucose 117 MG/DL 162 MG/DL (74-106) (74-106) Total Bilirubin 1.1 MG/DL (0.2-1.0) Aspartate Amino Transf 225 U/L (15-37) 118 U/L (15-37) (AST/SGOT) Alanine Aminotransferase 537 U/L (10-53) 423 U/L (10-53) (ALT/SGPT) Alkaline Phosphatase 411 U/L 361 U/L (45-117) (45-117) Troponin I LESS THAN 0.02 NG/ML (0.02-0.05) Urine Occult Blood TRACE (NEG) Urine Bacteria FEW /hpf (NONE) Lymphocytes (%) (Auto) 7.5 % (9.0-44.0) Lymphocytes # (Auto) 0.6 TH/MM3 (1.0-4.8) Albumin 3.1 GM/DL (3.4-5.0) Test 06/21/17 05:23 White Blood Count 18.7 TH/MM3 (4.0-11.0) Neutrophils (%) (Auto) 92.4 % (16.0-70.0) Lymphocytes (%) (Auto) 5.4 % (9.0-44.0) Neutrophils # (Auto) 17.3 TH/MM3 (1.8-7.7) Estimat Glomerular Filtration 74 ML/MIN (>89) Rate Random Glucose 155 MG/DL (74-106) Aspartate Amino Transf 111 U/L (15-37) (AST/SGOT) Alanine Aminotransferase 405 U/L (10-53) (ALT/SGPT) Alkaline Phosphatase 385 U/L (45-117) Imaging Last Impressions CT Angiography 06/19/172004 Signed Impressions: Service Date/Time: Monday, June 19, 2017 20:36 - CONCLUSION: 1. No evidence for pulmonary embolism. 2. Bibasilar patchy densities. Manuel Sanchez MD Chest X-Ray [id number]/[id number] Signed Impressions: Service Date/Time: Monday, June 19, 2017 18:19 - CONCLUSION: Slight elevation right hemidiaphragm. No acute disease. Manuel Sanchez MD Abdomen/Pelvis CT 06/19/17 0000 Signed Impressions: Service Date/Time: Monday, June 19, 2017 20:36 - CONCLUSION: 1. No acute inflammatory process. 2. Liver is unremarkable. 3. Left renal low-density likely cysts. Manuel Sanchez MD Pt update on day of discharge Patient seen today in follow-up for likely pneumonia with vasospasm. Patient doing better with steroids, although she does have a leukocytosis. Patient rest or status improved on room air. Her sepsis is resolved. She has requested Diflucan given a past history of vaginitis related to antibiotic therapy. Discharge plans discussed with patient Hospital Course Patient is a 42-year-old female was admitted to the hospital evidence of sepsis due to pneumonia. Patient was treated with IV antibiotics and had likely some vasospasm underlying which contributed to hypoxemia. Patient overall did well on IV antibiotics, buccal dilator therapy and IV steroids. Patient was discharged home. She did have elevated LFTs and a serology for hepatitis is pending at this time. Liver was unremarkable and CT Pt Condition on Discharge: Good Discharge Disposition: Discharge Home Discharge Time: > 30 minutes Discharge Instructions DIET: Follow Instructions for: As Tolerated, No Restrictions Activities you can perform: Regular-No Restrictions New Medications: Albuterol 6.7 GM Inh (Proventil Hfa 6.7 GM Inh) 90 Mcg/Act Aer 1 PUFF INH Q4H PRN SHORTNESS OF BREATH #1 Ref 0 INHALER Fluconazole (Diflucan) 150 Mg Tab 150 MG PO ONCE Infection #1 Ref 0 TAB Levofloxacin (Levofloxacin) 500 Mg Tablet 500 MG PO DAILY Infection #5 Ref 0 TAB Prednisone (Prednisone) 20 Mg Tab 20 MG PO DIRECTED 40 MG twice a day x 3 days, then 20 MG daily x 3 days, then 10 MG daily x 2 days Inflammation #11 Ref 0 TAB Benzonatate (Tessalon Perles) 100 Mg Cap 100 MG PO TID PRN COUGH #30 CAP Continued Medications: Desvenlafaxine ER 24 HR (Pristiq 24 HR) 50 Mg Tab 50 MG PO DAILY TAB Lorazepam (Ativan) 0.5 Mg Tab 0.5 MG PO DAILY PRN ANXIETY AND/OR AGITATION Ref 0 TAB Sun Borden MD Jun 21, 2017 09:35
[2017-06-21] MEDS ORDERED: HYDR-3580 PO (09:41)
== END 2017-06-21 10:54 | disposition home or self-care (01) | DRG 871 ==
LOC: PHED 17:45 → PHEDA 22:21 → PHEDH 06-20 02:21 → PH3B 06-20 07:49
PROVIDERS: ADMIT Hospitalist; ATTEND Hospitalist
DX: A41.9 Sepsis, unspecified organism (principal); J18.9 Pneumonia, unspecified organism; R09.02 Hypoxemia; F41.9 Anxiety disorder, unspecified; N76.0 Acute vaginitis; R79.89 Other specified abnormal findings of blood chemistry; Z87.440 Personal history of urinary (tract) infections
CPT/HCPCS: 71020; 71275; 74177; 80053; 80074; 81001; 82550; 84484; 85025; 85379; 85610; 85730; 93005; 94640; 94664; 96374; 96375; J0696; J1885; J1956; J2930; Q9967